=== PATIENT | female | born 1950 | race Caucasian/White ===

== ENCOUNTER → 2023-12-19 14:31 | Outpatient (REF) | payer OTHER, SELFPAY | LOC: HWWDC 14:31 | PROVIDERS: ATTENDING PHYSICIAN Internal Medicine | DX: Z12.31 Encounter for screening mammogram for malignant neoplasm of breast (principal) | CPT/HCPCS: 77063; 77067 ==

== ENCOUNTER 2024-06-09 13:23 | Emergency (ER) | payer OTHER, SELFPAY ==
[2024-06-09 13:31] VITALS: BP 164/102
[2024-06-09 13:54] LABS: COVID-19 Antigen Negative (Negative)
[2024-06-09 16:00] VITALS: BP 158/90
--- NOTE | 2024-06-09 16:14 | ED.GENMED ---
History of Present Illness
General
Chief Complaint: Cough
Source: patient
Exam Limitations: none
Time Seen by Provider: 06/09/24 15:21
Nursing documentation reviewed up to this point in time: agreed with
History of Present Illness
History of Present Illness:
Patient is a 74-year-old female presenting to the emergency department for evaluation of cough. Patient states she has been sick with URI symptoms including headache, congestion, sore throat, chills for the past 9 days. She states that 3 days ago
she started with a mostly dry cough which has been progressively worsening. Patient reports lingering chills and headache. Patient states she feels extremely weak and tired with little appetite. Patient denies any exertional chest tightness or
shortness of breath. No hemoptysis. No or lower leg pain or swelling.
Patient was intermittently taking Advil cold and sinus although has not take anything yet today.
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
Review of Systems
Review of Systems
Allergies reviewed?: Yes
All Other Systems: ROS reviewed and negative except as documented in HPI and ROS
Phy Exam
Physical Exam
Physical Exam:
Vitals: Hypertensive, tachycardic. Temp 99.2 F
General: Patient is well appearing, no acute distress. Nontoxic appearing
Skin: Warm and dry, no rashes or lesions
Head: Normocephalic, atraumatic
Eyes: Sclera nonicteric. EOMs intact. No nystagmus.
Throat: Mild pharyngeal erythema without tonsillar edema or exudates. Uvula midline. Protecting airway
Neck: Normal ROM, no cervical spine tenderness, no meningismus
Cardiac: Tachycardic, normal rhythm, no murmurs.
Pulm: Normal respiratory effort. Decreased breath sounds in right middle lobe. No tachypnea. O2 saturation 98 on room air
Abdomen: Abdomen soft and nontender. No abdominal tenderness.
Extremities: No evidence of cyanosis or edema. Palpable DP pulses bilaterally
Neuro: AAOx3. Grossly intact.
Psychiatric: Normal affect.
Course
Orders/Labs/Results
Orders:
Orders
06/09/24 13:35
COVID-19 Antigen Urgent
Source: Nasal Swab
Influenza A+B Rapid Molecular Urgent
FAUSTO Source: Nasal Swab
Specimen Description:
06/09/24 14:22
CR Chest - 2 Views Urgent
Comment:
Reason For Exam: cough
06/09/24 15:54
0.9% Sodium Chloride 1000 ml [Nss] 1,000 ml IV BOLUS
Acetaminophen [Tylenol] 650 mg PO NOW STA
06/09/24 16:14
Vital Signs- Treatment ONCE
Frequency: Once
06/09/24 16:33
Complete Blood Count/With Diff Urgent
Comprehensive Metabolic Panel Urgent
06/09/24 16:34
Lactic Acid Q4H
Comment: CANCEL 2nd LACTIC ACID IF 1st LACTIC ACID IS LESS THAN 2
06/09/24 16:56
Electrocardiogram (*1) Urgent
Reason for Study: Shortness of Breath
EKG- Treatment ONCE
06/09/24 17:[address] Non Medication Order As Directed
Physician Order: walking pulse ox
Above order entered?: Yes
06/09/24 19:06
Amoxicillin 875 mg/Clav 125 mg [Augmentin 875 mg/125 mg] 1 tablet PO NOW STA
Azithromycin [Zithromax] 500 mg PO NOW STA
Abnormal Lab Results
06/09/24
16:33
Hct 35.8 L %
(37.0-47.0)
Absolute Monos (auto) 0.9 H 10^3/uL
(0.1-0.6)
Monocytes % 14.0 H %
(1.7-9.3)
Sodium 132 L mmol/L
(135-145)
Chloride 95 L mmol/L
(98-107)
BUN 4 L mg/dl
(7-17)
Creatinine 0.5 L mg/dL
(0.6-1.0)
Glucose 106 H mg/dl
(70-99)
06/09/24 16:33
06/09/24 16:33
Vital Signs
Initial and Last Documented VS:
Initial Vital Signs
Temp Pulse Resp BP Pulse Ox
99.2 F 112 20 164/102 98
06/09/24 13:31 06/09/24 13:31 06/09/24 13:31 06/09/24 13:31 06/09/24 13:31
Last Documented Vital Signs
Temp Pulse Resp BP Pulse Ox
99.2 F 62 18 158/90 97
06/09/24 13:31 06/09/24 16:00 06/09/24 16:00 06/09/24 16:00 06/09/24 16:00
MDM/Problems Addressed
Differential Diagnosis Includes:
Not limited to: Viral illness, bronchitis, pneumonia, restrictive airway disease, etc.
MDM/Problems Addressed:
74-year-old female presenting with 9 days of URI with new onset cough and fatigue. Patient initially tachycardic and hypertensive although improved by my assessment. Patient afebrile on arrival to emergency department. Physical exam as above.
Viral swabs and chest x-ray obtained in triage. Viral swabs negative. Chest x-ray does show a right basilar opacity concerning for pneumonia. Although patient generally well-appearing�given initial tachycardia and significant fatigue�will obtain
basic labs, lactic. Will give IV fluids. Disposition pending above.
Update: Labs reviewed. No leukocytosis or left shift. Chemistry with mild hyponatremia and hypochloremia, otherwise no clinically significant abnormalities. Lactic acid normal. Patient not septic. Patient received liter IV fluids and feels mild
improvement. Pulse rate has normalized. Patient remains hemodynamically stable. Did obtain walking pulse ox and people maintained O2 saturations 100 on room air. Given patient afebrile with normal vital signs and no leukocytosis�feel she is
stable for outpatient management with p.o. antibiotics. Will start Augmentin/azithromycin. Patient given first dose of both in emergency department. Close return precautions discussed. She will follow with primary care this week to ensure
symptoms improving. Patient verbalized understanding and is comfortable discharge home.
Chronic conditions affecting care:
N/A
Acute Exacerbation and/or Progression of Chronic Illness:
N/A
*Radiology
Radiology exam reviewed: preliminary read by ED provider (Chest x-ray reviewed by me-opacity in right middle lobe) and radiology read reviewed
*Pulse Oximetry
Patient hypoxic: no
*EKG
Interpreted by ED Provider?: Yes
EKG Intrepretation Date: 06/09/24
Interpretation: normal
Comparison EKG: no comparison EKG present
Heart Rate: 87
Rate: normal
Rhythm: sinus
Brandon: normal axis
Interval: normal QT interval
QRS Pattern: normal QRS
Ischemia: no ischemia
*Skip Miner Interpretation
Rate: Skip Miner- N/A
*Critical Care Note
Total Time (30-74mins, 75-104mins- exclusive of procedures): Not Applicable
Patient Management
Escalation/DeEscalation of care consider admission/obs:
Admit not indicated
ED Attending Note
-
Portions of this chart may have been created with voice recognition software.� Occasional wrong word or��sound alike� substitutions may have occurred due to the inherent limitations of voice recognition software.
Discharge Plan
Departure
Patient Disposition: Home (Routine Discharge)
Date of Disposition: 06/09/24
Time of Disposition: 19:41
Patient with high blood pressure during this ER visit?: Yes
Covid-19: Negative COVID-19
Discharge Problem:
CAP (community acquired pneumonia)
Instructions: Pneumonia, Adult (DC), BLOOD PRESSURE
Prescriptions:
New
amoxicillin-pot clavulanate 875-125 mg tablet
1 tab PO BID 5 Days Qty: 9 0RF
azithromycin 250 mg tablet
250 mg PO DAILY 4 Days Qty: 4 0RF
Referrals:
Syed Ramirez MD [Family Provider] - Follow up in 2-3 days
Activity Restrictions/Additional Instructions:
Return to the emergency department for any high fevers, chest pain, shortness of breath/difficulty breathing, lightheadedness/dizziness, persistent fatigue, blood in sputum, worsening in current symptoms, or any other concerns
-As discussed�your x-ray showed a right basilar pneumonia today.
-2 prescriptions for antibiotics have been sent to your pharmacy. You should take Augmentin twice a day for the next 5 days. You should take azithromycin once a day for the next 5 days. You were given your first dose of both of these medications
in the emergency department today.
-Continue to take Tylenol as needed for fever, headache. Stay well-hydrated. Get plenty of rest.
-Follow-up with your primary care in a few days to ensure that symptoms are improving/for further evaluation
Monitor your symptoms closely and return to the emergency department with any acute worsening/new symptoms or any other concerns
Interventions
Interventions:
*General Assessment Last Done: 06/09/24 17:12
*ED- Fall Risk Assessment Last Done: 06/09/24 17:12
*ED COVID-19 Vaccine History Last Done: 06/09/24 17:12
ED- Pulmonary Assessment Last Done: 06/09/24 17:12
Discharge Date and Time
Print Language: SUDANESE
[2024-06-09] MEDS: NSS 1000 IV (16:24)
[2024-06-09] MEDS: TYLENOL 650 MG PO (16:24)
[2024-06-09 16:54] LABS: % Basophils 0.5 % (0-2); % Eosinophils 1.1 % (0-6); % Immature Granulocytes 0.2 % (0-0.5); % Lymphocytes 25.8 % (20.5-51.1); % Neutrophils 58.4 % (42.2-75.2); Absolute Eosinophils 0.1 10^3/uL (0-0.7); Absolute Lymphocytes 1.6 10^3/uL (1.2-3.4); Absolute Monocytes 0.9 10^3/uL (0.1-0.6); Absolute Neutrophils 3.7 10^3/uL (1.4-6.5); Hematocrit 35.8 % (37.0-47.0); Hemoglobin 12.5 g/dL (12.0-16.0); Mean Corp Hgb Conc. 34.9 g/dL (33.0-37.0); Mean Corpuscular Hgb 28.8 pg (27.0-31.0); Mean Corpuscular Volume 82.5 fL (81.0-99.0); Mean Platelet Volume 9.1 fL (7.4-10.4); Nucleated Red Blood Cells % 0 %; Platelet Count 240 10^3/uL (130-400); Red Blood Cell Count 4.34 10^6/uL (4.20-5.40); Red Cell Dist. Width 12.9 % (11.5-14.5); White Blood Cell Count 6.3 10^3/uL (4.8-10.8)
[2024-06-09 17:08] LABS: Lactic Acid 0.8 mmol/L (0.7-2.0)
[2024-06-09 17:09] LABS: ALT (SGPT) 25 U/L (0-35); AST (SGOT) 24 U/L (14-36); Albumin 3.9 g/dl (3.5-5.0); Alkaline Phosphatase 103 U/L (38-126); Blood Urea Nitrogen 4 mg/dl (7-17); Calcium 9.3 mg/dl (8.4-10.2); Carbon Dioxide 29 mmol/L (22-30); Chloride 95 mmol/L (98-107); Glucose 106 mg/dl (70-99); Potassium 4.5 mmol/L (3.5-5.1); Sodium 132 mmol/L (135-145); Total Bilirubin 0.8 mg/dl (0.2-1.3); Total Protein 6.7 g/dl (6.3-8.2); eGFR > 60.00
[2024-06-09 18:00] VITALS: BP 157/92
[2024-06-09] MEDS: ZITHROMAX 500 MG PO (19:36)
[2024-06-09] MEDS: AUGMENTIN 875 MG/125 MG 1 TABLET PO (19:36)
== END 2024-06-09 20:00 | disposition home or self-care (01) ==
LOC: EMR 13:23
PROVIDERS: Emergency Medicine; Physician Assistant; EMERGENCY PHYSICIAN Student in an Organized Health Care Education/Training Program; FAMILY PHYSICIAN Internal Medicine
DX: J18.9 Pneumonia, unspecified organism (principal); R51.9 Headache, unspecified; R53.1 Weakness; Z11.52 Encounter for screening for COVID-19; E07.9 Disorder of thyroid, unspecified; Z88.8 Allergy status to other drugs, medicaments and biological substances
CPT/HCPCS: 99285; 96360; 71046; 80053; 83605; 85025; 87502; 87811; 93005

== ENCOUNTER 2025-01-31 11:26 | Emergency (ER) | payer OTHER, SELFPAY ==
[2025-01-31 11:30] VITALS: BP 181/104
[2025-01-31 11:55] VITALS: BMI 21.8
[2025-01-31 11:56] VITALS: BP 163/106
[2025-01-31 13:04] VITALS: BP 161/97
--- NOTE | 2025-01-31 13:27 | ED.GENMED ---
History of Present Illness
General
Chief Complaint: Musculo-Skeletal Complaint
Source: patient
Exam Limitations: none
Time Seen by Provider: 01/31/25 13:00
Nursing documentation reviewed up to this point in time: agreed with
History of Present Illness
History of Present Illness:
74-year-old female presents to the ER for evaluation of neck pain. Patient reports on Monday 5 days ago she woke up with right-sided neck pain. She felt that she slept well. She has had increasing pain and now reports the pain is spread
throughout her entire neck. It is worse with any range of motion. She denies any associated headache blurry vision nausea vomiting. Denies any chest pain shortness of breath. Denies any upper back pain. Denies any radiation of pain. Denies
any numbness tingling weakness to upper extremities.
Phy Exam
General Physical Exam
General Presentation: no apparent distress
General age: appears stated age
General Skin: warm and dry
General Habitus: normal
General Mental: alert
General Hydration: appears well hydrated
Cardiovascular Exam
Cardiovascular Exam: regular rate/rhythm, no murmur and normal peripheral pulses
Pulmonary Exam
Pulmonary Exam: lungs clear and no respiratory distress
Neurological Exam
Neurological Exam: alert, oriented x3, no motor deficits, no sensory deficits and other (Normal sensation to bilateral upper extremities intact ecmo specialist strength)
Musculoskeletal Exam
Musculoskeletal Exam: other (Tender throughout the posterior neck throughout , pain with any rom including flexion/extension of neck )
Skin Exam
Skin Exam: normal color and warm/dry
Psychiatric Exam
Psychiatric Exam: normal mood/affect
Course
Orders/Labs/Results
Orders:
Orders
01/31/25 11:32
EKG [Electrocardiogram (*1)] Urgent
Reason for Study: Fatigue / Weakness
EKG- Treatment ONCE
01/31/25 13:34
Acetaminophen [Tylenol] 1,000 mg PO NOW STA
Ketorolac [Toradol] 30 mg IM NOW STA
Lidocaine [Lidocaine 4% Patch] 1 patch TOPICAL NOW STA
Apply Lidocaine patch(s) to:: neck
diazePAM [Valium Injection] 5 mg IM NOW STA
Vital Signs
Initial and Last Documented VS:
Initial Vital Signs
Temp Pulse Resp BP Pulse Ox
98.2 F 117 16 181/104 96
01/31/25 11:30 01/31/25 11:30 01/31/25 11:30 01/31/25 11:30 01/31/25 11:30
Last Documented Vital Signs
Temp Pulse Resp BP Pulse Ox
98.2 F 86 16 159/86 98
01/31/25 11:30 01/31/25 14:22 01/31/25 14:22 01/31/25 14:22 01/31/25 14:22
MDM/Problems Addressed
Differential Diagnosis Includes:
Not limited to muscle sprain strain torticollis
MDM/Problems Addressed:
Symptoms are consistent with torticollis. Patient feeling better with Valium and IM Toradol lidocaine patch. She has improved range of motion no neurological deficits no associated headache. Will DC with Valium ibuprofen Tylenol warm moist heat
and gentle range of motion exercises with close outpatient follow-up with family doctor
*Pulse Oximetry
SaO2: 97
Oxygen Mode of Delivery: Room air
Patient hypoxic: no
*Critical Care Note
Total Time (30-74mins, 75-104mins- exclusive of procedures): Not Applicable
ED Attending Note
-
Portions of this chart may have been created with voice recognition software.� Occasional wrong word or��sound alike� substitutions may have occurred due to the inherent limitations of voice recognition software.
Discharge Plan
Departure
Patient Disposition: Home (Routine Discharge)
Date of Disposition: 01/31/25
Time of Disposition: 15:33
Patient with high blood pressure during this ER visit?: Yes
Condition: Fair
Covid-19: Not Applicable
Discharge Problem:
Acute torticollis
Instructions: Torticollis (DC), BLOOD PRESSURE
Prescriptions:
New
diazepam [Valium] 5 mg tablet
5 mg PO TID PRN (Reason: muscle spasm) Qty: 10 0RF
No Action
amoxicillin-pot clavulanate 875-125 mg tablet
1 tab PO BID 5 Days Qty: 9 0RF
azithromycin 250 mg tablet
250 mg PO DAILY 4 Days Qty: 4 0RF
Referrals:
Syed Ramirez MD [Family Provider, Internal Medicine]
Activity Restrictions/Additional Instructions:
As discussed a prescription for Valium was sent to your pharmacy take as directed. This is a muscle relaxer will cause drowsiness no driving or drink alcohol while taking this medication. You may take this every 8 hours if needed. You may take
ibuprofen every 8 hours also with food. Alternate with Tylenol. Warm moist heat several times a day. Gentle range of motion neck exercises as discussed. Follow-up with your family doctor in the next 2 days return if any worsening of symptoms
Interventions
Interventions:
*Risk Screen - Suicide Last Done: 01/31/25 11:30
*General Assessment Last Done: 01/31/25 11:55
*Neglect/Abuse Screening Last Done: 01/31/25 11:30
*ED- Fall Risk Assessment Last Done: 01/31/25 11:55
*ED COVID-19 Vaccine History Last Done: 01/31/25 11:55
*ED Influenza Vaccine History Last Done: 01/31/25 11:55
ED-Musculoskeletal Assessment Last Done: 01/31/25 11:55
Discharge Date and Time
Print Language: TAJIK
[2025-01-31] MEDS: LIDOCAINE 4% PATCH 1 PATCH TOPICAL (13:41)
[2025-01-31] MEDS: TYLENOL 1000 MG PO (13:41)
[2025-01-31] MEDS: TORADOL 30 MG IM (13:42)
[2025-01-31] MEDS: VALIUM INJECTION 5 MG IM (13:50)
[2025-01-31 14:22] VITALS: BP 159/86
== END 2025-01-31 16:00 | disposition home or self-care (01) ==
LOC: EMR 11:26
PROVIDERS: EMERGENCY PHYSICIAN Emergency Medicine; FAMILY PHYSICIAN Internal Medicine
DX: M43.6 Torticollis (principal)
CPT/HCPCS: 99283; 96372; 93005